=== PATIENT | male | born 1975 | race Caucasian/White ===

== ENCOUNTER 2017-12-18 11:47 | Emergency (ER) | payer BC ==
[~2017-12-18] VITALS: Ht 182.9 cm; Wt 101.6 kg
[2017-12-18 12:01] VITALS: Ht 182.9 cm; Wt 101.6 kg
[2017-12-18 13:07] VITALS: BP 131/84
== END 2017-12-18 13:07 | disposition home or self-care (01) ==
LOC: ED 11:47
DX: M62.830 Muscle spasm of back (principal); I10 Essential (primary) hypertension; E11.9 Type 2 diabetes mellitus without complications
CPT/HCPCS: 20552; J1885; J2001